=== PATIENT | male | born 1990 | race Hispanic/Latino ===

== ENCOUNTER 2017-08-13 16:23 | Emergency (ER) | payer OTHER ==
[2017-08-13] MEDS ORDERED: SULFAMETHOX-TMP DS 800/160 TAB ONE (16:42)
[2017-08-13] MEDS ORDERED: IBUPROFEN 600 MG TABLET ONE (16:42)
== END 2017-08-13 17:03 | disposition home or self-care (01) ==
LOC: EDH 16:23
DX: L03.114 Cellulitis of left upper limb (principal); F41.9 Anxiety disorder, unspecified

== ENCOUNTER 2018-01-17 07:42 | Inpatient (IN) | payer SELFPAY ==
[~2018-01-17] VITALS: Ht 157.5 cm; Wt 80.6 kg
[2018-01-17 00:05] VITALS: BP 118/68
[2018-01-17 08:14] LABS: BASOPHILS % (AUTO) 0.2 % (0.0-5.0); EOSINOPHILS % (AUTO) 1.4 % (0.0-8.0); HEMATOCRIT 49.1 % (42-54); LYMPHOCYTES % (AUTO) 6.1 % (21.0-51.0); MEAN CORPUSCULAR HEMOGLOBIN 34.4 pg (27.0-33.0); MEAN CORPUSCULAR HGB CONC 34.5 g/dL (32.0-36.0); MEAN CORPUSCULAR VOLUME 99.7 fL (79-99); MONOCYTES % (AUTO) 3.9 % (3.0-13.0); NEUTROPHILS % (AUTO) 88.4 % (40.0-77.0); NUCLEATED RED BLOOD CELLS 0.1 % (0.0-0.19); PLATELET COUNT (AUTO) 146 K/uL (130-400); RED BLOOD CELL COUNT(AUTO) 4.92 MIL/uL (4.50-6.20); RED CELL DISTRIBUTION WIDTH 13.3 % (11.0-15.5); WHITE BLOOD COUNT (AUTO) 18.8 K/uL (4.8-10.8)
[2018-01-17 08:15] LABS: APPEARANCE,URINE Clear (CLEAR); BILIRUBIN,URINE Negative (NEGATIVE); COLOR,URINE Yellow (YELLOW); GLUCOSE, URINE (UA) Negative (NEGATIVE); KETONES,URINE Negative (NEGATIVE); LEUKOCYTE ESTERASE ,URINE Negative (NEGATIVE); NITRATE,URINE Negative (NEGATIVE); OCCULT BLOOD,URINE Negative (NEGATIVE); PROTEIN,URINE Negative (NEGATIVE)
[2018-01-17 08:26] LABS: CREATININE 1.1 mg/dL (0.5-1.5); POTASSIUM 4.2 mmol/L (3.5-5.1)
[2018-01-17 08:32] LABS: ALBUMIN 3.7 g/dL (3.5-5.0); BILIRUBIN,TOTAL 0.4 mg/dL (0.2-1.0); TOTAL PROTEIN, SERUM 6.2 g/dL (6.0-8.3)
[2018-01-17] MEDS ORDERED: ONDANSETRON HCL 4 MG/2 ML VIAL ONE (08:50)
[2018-01-17] MEDS ORDERED: CLINDAMYCIN 900 MG/D5% WATER 50 ML IV ONE (08:50)
[2018-01-17] MEDS ORDERED: MORPHINE SULFATE 4 MG/1ML SYG ONE ×2 (08:50→21:07)
[2018-01-17] MEDS ORDERED: SODIUM CHLORIDE 0.9% 1000ML 1,000 ML IV ONE (08:50)
[2018-01-17] MEDS ORDERED: MORPHINE SULFATE 2 MG/ML 1ML SYG IV PRN (09:45)
[2018-01-17] MEDS ORDERED: ONDANSETRON HCL 4 MG/2 ML VIAL IV PRN (09:45)
[2018-01-17] MEDS ORDERED: ACETAMINOPHEN-CODEINE 300/30MG TAB PO PRN (09:45)
[2018-01-17] MEDS ORDERED: MAG HYDROX/AL HYDROX/SIMETH ES 30 ML SUSP UDCUP PO PRN (09:45)
[2018-01-17] MEDS ORDERED: ACETAMINOPHEN 325 MG TAB PO PRN (09:45)
[2018-01-17] MEDS ORDERED: VANCOMYCIN 1GM+NS 250ML 250 ML IV SCH (09:45)
[2018-01-17] MEDS ORDERED: VANCOMYCIN PROTOCOL PER PHARMACY IV PRN ×2 (09:45→12:00)
[2018-01-17] MEDS ORDERED: ZOSYN 3.375GM+NS 50ML 50 ML IV ONE (09:50)
[2018-01-17] MEDS ORDERED: SODIUM CHLORIDE 0.9% 100 ML IV ONE (09:51)
[2018-01-17 10:34] LABS: HEMOGLOBIN A1C 4.9 % (4.0-6.0)
[2018-01-17] MEDS ORDERED: VANCOMYCIN 1GM+NS 250ML 250 ML IV ONE (10:40)
[2018-01-17] MEDS ORDERED: VANCOMYCIN 500MG+NS 100ML 100 ML IV ONE (13:00)
[2018-01-17] MEDS ORDERED: COMPOUND IV REFRIGERATED 1 EACH IVSOLN MISC PRN (13:00)
[2018-01-17] MEDS ORDERED: VANCOMYCIN 750MG + NS 250 ML IV SCH ×2 (17:00)
[2018-01-17] MEDS: ZOSYN 3.375GM+NS 50ML 50 ML IV SCH (21:00)
[2018-01-17 21:27] VITALS: BP 131/75
[2018-01-17] MEDS: FAMOTIDINE/PF 20 MG/2 ML VIAL IV SCH (23:50)
[2018-01-18 03:54] VITALS: BP 126/77
[2018-01-18 04:37] LABS: HEMATOCRIT 42.2 % (42-54); MEAN CORPUSCULAR HEMOGLOBIN 35.2 pg (27.0-33.0); MEAN CORPUSCULAR HGB CONC 35.5 g/dL (32.0-36.0); MEAN CORPUSCULAR VOLUME 99.2 fL (79-99); PLATELET COUNT (AUTO) 144 K/uL (130-400); RED BLOOD CELL COUNT(AUTO) 4.25 MIL/uL (4.50-6.20); RED CELL DISTRIBUTION WIDTH 13.4 % (11.0-15.5); WHITE BLOOD COUNT (AUTO) 9.4 K/uL (4.8-10.8)
[2018-01-18 04:47] LABS: POTASSIUM 4.1 mmol/L (3.5-5.1)
[2018-01-18] MEDS: ZOSYN 3.375GM+NS 50ML 50 ML IV SCH ×3 (05:40→21:49)
[2018-01-18 05:47] LABS: ERYTHROCYTE SEDIMENTATION RATE 1 MM/HR (0-15)
[2018-01-18 08:00] VITALS: BP 132/68
[2018-01-18] MEDS: FAMOTIDINE/PF 20 MG/2 ML VIAL IV SCH ×2 (11:41→21:49)
[2018-01-18] MEDS: ENOXAPARIN SODIUM 40 MG/0.4 ML SYRINGE SQ SCH (11:43)
[2018-01-18 12:00] VITALS: BP 129/50
[2018-01-18] MEDS ORDERED: VANCOMYCIN 1.25 GM in SODIUM CHLORIDE 0.9% 250 ML IV ONE ×2 (12:00→13:00)
[2018-01-18] MEDS: ACETAMINOPHEN-CODEINE 300/30MG TAB PO PRN ×2 (12:01→21:49)
[2018-01-18] MEDS ORDERED: VANCOMYCIN 1GM+NS 250ML 0 ML IV ONE (12:39)
[2018-01-18 16:00] VITALS: BP 115/62
[2018-01-18] MEDS: VANCOMYCIN 750MG + NS 250 ML IV SCH ×2 (17:13)
[2018-01-18] MEDS: SODIUM CHLORIDE 0.9% 1000ML 1,000 ML IV SCH ×2 (17:24)
[2018-01-18] MEDS ORDERED: IOHEXOL-350 75 ML VIAL IV ONE (19:02)
[2018-01-18 19:05] VITALS: BP 135/82
[2018-01-19 00:05] VITALS: BP 124/63
[2018-01-19] MEDS: VANCOMYCIN 750MG + NS 250 ML IV SCH ×6 (00:14→16:28)
[2018-01-19] MEDS: SODIUM CHLORIDE 0.9% 1000ML 1,000 ML IV SCH ×3 (01:44→22:01)
[2018-01-19] MEDS: ZOSYN 3.375GM+NS 50ML 50 ML IV SCH ×3 (04:12→22:01)
[2018-01-19 04:35] VITALS: BP 101/60
[2018-01-19 05:43] LABS: HEMATOCRIT 42.2 % (42-54); MEAN CORPUSCULAR HEMOGLOBIN 34.6 pg (27.0-33.0); MEAN CORPUSCULAR HGB CONC 34.8 g/dL (32.0-36.0); MEAN CORPUSCULAR VOLUME 99.3 fL (79-99); NUCLEATED RED BLOOD CELLS 0.1 % (0.0-0.19); PLATELET COUNT (AUTO) 131 K/uL (130-400); RED BLOOD CELL COUNT(AUTO) 4.25 MIL/uL (4.50-6.20); RED CELL DISTRIBUTION WIDTH 13.1 % (11.0-15.5); WHITE BLOOD COUNT (AUTO) 6.8 K/uL (4.8-10.8)
[2018-01-19 06:01] LABS: CREATININE 0.9 mg/dL (0.5-1.5); POTASSIUM 4.2 mmol/L (3.5-5.1)
[2018-01-19 08:30] VITALS: BP 128/79
[2018-01-19] MEDS: FAMOTIDINE/PF 20 MG/2 ML VIAL IV SCH ×2 (09:34→22:01)
[2018-01-19] MEDS: ENOXAPARIN SODIUM 40 MG/0.4 ML SYRINGE SQ SCH (09:35)
[2018-01-19] MEDS ORDERED: ZINC OXIDE OINT 56.7 GM TP PRN (09:45)
[2018-01-19 11:31] VITALS: BP 122/73
[2018-01-19 16:00] VITALS: BP 138/81
[2018-01-19 20:00] VITALS: BP 133/79
[2018-01-20] VITALS: BP 127/72
[2018-01-20] MEDS: VANCOMYCIN 750MG + NS 250 ML IV SCH ×2 (01:16)
[2018-01-20 04:00] VITALS: BP 111/73
[2018-01-20] MEDS: ZOSYN 3.375GM+NS 50ML 50 ML IV SCH ×2 (05:21→13:00)
[2018-01-20 07:00] VITALS: BP 124/71
[2018-01-20] MEDS: SODIUM CHLORIDE 0.9% 1000ML 1,000 ML IV SCH (07:44)
[2018-01-20 08:10] LABS: HEMATOCRIT 44.1 % (42-54); MEAN CORPUSCULAR HEMOGLOBIN 34.9 pg (27.0-33.0); MEAN CORPUSCULAR HGB CONC 35.3 g/dL (32.0-36.0); MEAN CORPUSCULAR VOLUME 98.8 fL (79-99); NUCLEATED RED BLOOD CELLS 0.2 % (0.0-0.19); PLATELET COUNT (AUTO) 157 K/uL (130-400); RED BLOOD CELL COUNT(AUTO) 4.47 MIL/uL (4.50-6.20); RED CELL DISTRIBUTION WIDTH 13.2 % (11.0-15.5); WHITE BLOOD COUNT (AUTO) 6.8 K/uL (4.8-10.8)
[2018-01-20 08:23] LABS: CREATININE 0.8 mg/dL (0.5-1.5)
[2018-01-20] MEDS: FAMOTIDINE/PF 20 MG/2 ML VIAL IV SCH (09:23)
[2018-01-20] MEDS: ENOXAPARIN SODIUM 40 MG/0.4 ML SYRINGE SQ SCH (09:23)
[2018-01-20] MEDS ORDERED: VANCOMYCIN 1.25 GM in SODIUM CHLORIDE 0.9% 250 ML IV SCH (10:00)
[2018-01-20 12:00] VITALS: BP 126/65
[2018-01-20] MEDS ORDERED: DOXY100T19 PO (15:22)
[2018-01-20] MEDS ORDERED: AMOX-429 PO (15:22)
[2018-01-20 16:00] VITALS: BP 145/90
== END 2018-01-20 16:11 | disposition home or self-care (01) | DRG 872 ==
LOC: EDH 07:42 → EDHIP 07:43 → 3AH 20:37
PROVIDERS: ADMIT Internal Medicine; ATTEND Internal Medicine
DX: A41.9 Sepsis, unspecified organism (principal); L08.9 Local infection of the skin and subcutaneous tissue, unspecified; N49.2 Inflammatory disorders of scrotum; E66.9 Obesity, unspecified; L02.92 Furuncle, unspecified; L53.9 Erythematous condition, unspecified; R53.81 Other malaise; N50.89 Other specified disorders of the male genital organs; Z68.32 Body mass index [BMI] 32.0-32.9, adult; Z23 Encounter for immunization
CPT/HCPCS: 36415; 74178; 76870; 80048; 80053; 80202; 80339; 81003; 83036; 83605; 83690; 85025; 85027; 85651; 86140; 87040; 87070; 87076; 87077; 87186; G0008; J1650; J2270; J2405; J2543; J3370; J3490; J7030; Q2038; Q9967

== ENCOUNTER 2022-04-07 11:08 | Emergency (ER) | payer OTHER ==
[~2022-04-07] VITALS: Ht 157.5 cm; Wt 70.3 kg
[~2022-04-07 11:08] MED LIST: AMOX-429 PO; DOXY100T21 PO
[2022-04-07 11:22] VITALS: BP 137/85
[2022-04-07 12:00] LABS: BASOPHILS % (AUTO) 0.2 % (0.0-5.0); EOSINOPHILS % (AUTO) 1.9 % (0.0-8.0); HEMATOCRIT 39.6 % (42-54); LYMPHOCYTES % (AUTO) 10.3 % (21.0-51.0); MEAN CORPUSCULAR HEMOGLOBIN 32.9 pg (27.0-33.0); MEAN CORPUSCULAR HGB CONC 34.6 g/dL (32.0-36.0); MEAN CORPUSCULAR VOLUME 95.2 fL (79-99); MONOCYTES % (AUTO) 7.6 % (3.0-13.0); NEUTROPHILS % (AUTO) 79.5 % (40.0-77.0); PLATELET COUNT (AUTO) 272 K/uL (130-400); RED BLOOD CELL COUNT(AUTO) 4.16 MIL/uL (4.50-6.20); RED CELL DISTRIBUTION WIDTH 11.9 % (11.0-15.5); WHITE BLOOD COUNT (AUTO) 10.3 K/uL (4.8-10.8)
[2022-04-07 12:19] LABS: APPEARANCE,URINE CLEAR (CLEAR); BILIRUBIN,URINE NEGATIVE (NEGATIVE); COLOR,URINE YELLOW (YELLOW); GLUCOSE, URINE (UA) NEGATIVE (NEGATIVE); KETONES,URINE NEGATIVE (NEGATIVE); LEUKOCYTE ESTERASE ,URINE NEGATIVE Leu/uL (NEGATIVE); NITRATE,URINE NEGATIVE (NEGATIVE); OCCULT BLOOD,URINE NEGATIVE (NEGATIVE); PROTEIN,URINE 20 mg/dL (NEGATIVE)
[2022-04-07 12:22] LABS: MUCUS,URINE RARE LPF (None Seen); RBC,URINE 0-1 /HPF (0-1); WBC,URINE 0-1 /HPF (0-1)
[2022-04-07 12:25] LABS: ALBUMIN 3.4 g/dL (3.5-5.0); POTASSIUM 3.9 mmol/L (3.5-5.1); TOTAL PROTEIN, SERUM 7.8 g/dL (6.0-8.3)
[2022-04-07] MEDS ORDERED: CLIN-141 PO (12:56)
[2022-04-07] MEDS ORDERED: IBUP-2070 PO (12:56)
[2022-04-07] MEDS ORDERED: KETOROLAC 15MG/ML VIAL (15MG/ML) IV ONE (13:00)
[2022-04-07] MEDS ORDERED: 0.9%NACL 1000ML 1,000 ML IV ONE (13:00)
[2022-04-07] MEDS ORDERED: CLINDAMYCIN IVPB 600MG/50ML 50 ML IV SCH (13:00)
== END 2022-04-07 14:08 | disposition home or self-care (01) ==
LOC: EDH 11:08
DX: L03.116 Cellulitis of left lower limb (principal); E11.9 Type 2 diabetes mellitus without complications; I10 Essential (primary) hypertension
CPT/HCPCS: 99285; 96365; 93971; 96366; 96375; 80053; 85025; 87040 ×2; 83605; 81001; 36415; J7030; J1885; J3490